=== PATIENT | male | born 1955 | race Caucasian/White ===

== ENCOUNTER → 2020-04-24 | Outpatient (CLI) | payer BC ==
[~2020-04-24] MED LIST: NAPR550 PO; OXYACE5T PO
[2020-04-24 15:35] LABS: BASOPHILS PERCENT AUTO 2 % (0-2); EOSINOPHILS ABSOLUTE AUTO 0.17 K/mm3 (0.00-0.68); EOSINOPHILS PERCENT AUTO 3 % (0-6); IMMATURE GRAN ABSOLUTE AUTO 0.02 K/mm3 (0.00-0.10); IMMATURE GRAN PERCENT AUTO 0 % (0-1); LYMPHOCYTES ABSOLUTE AUTO 1.64 K/mm3 (0.84-5.20); LYMPHOCYTES PERCENT AUTO 25 % (21-46); MONOCYTES ABSOLUTE AUTO 0.56 K/mm3 (0.16-1.47); MONOCYTES PERCENT AUTO 9 % (4-13); Mean Corpuscular HGB 29.1 pg (26.0-34.0); Mean Corpuscular HGB Conc 32.7 g/dL (31.5-36.5); Mean Corpuscular Volume 89 fL (80-100); Mean Platelet Volume 8.8 fL (9.1-12.4); NEUTROPHILS ABSOLUTE AUTO 4.11 K/mm3 (1.96-9.15); NEUTROPHILS PERCENT AUTO 62 % (41-73); Platelet Count 249 K/mm3 (150-400); RDW Coefficient Variation 12.6 % (11.7-14.2); RDW Standard Deviation 41.1 fL (35.1-46.3); Red Blood Cell Count 5.84 M/mm3 (4.30-5.90)
[2020-04-24 16:25] LABS: Alanine Aminotransfer (ALT/SGP 20 U/L (12-78); Albumin/Globulin Ratio 1.1 (0.8-1.8); Alk Phos 104 U/L (50-136); Anion Gap 8 mmol/L (6-16); Aspartate Aminotrans (AST/SGOT 14 U/L (12-37); Bilirubin, Total 1.1 mg/dL (0.1-1.0); Blood Urea Nitrogen 13 mg/dL (8-24); Bun/Creatinine Ratio 13.8 (12.0-20.0); CHOL/HDL RATIO 6.1; CO2, Blood 27 mmol/L (21-32); Calcium, Blood 8.9 mg/dL (8.5-10.1); Chloride, Blood 106 mmol/L (98-108); Cholesterol 238 mg/dL (50-200); Creatinine, Blood 0.94 mg/dL (0.60-1.20); Globulin, Blood 3.5 g/dL (2.2-4.0); Glomerular Filtration Rate >60 (60-); Glucose, Blood 111 mg/dL (70-99); HDL Cholesterol 39 mg/dL (>39); LDL/HDL RATIO 4.6; Low Density Lipoprotein Chol 180 mg/dL (0-110); Potassium, Blood 3.8 mmol/L (3.5-5.5); Sodium, Blood 141 mmol/L (136-145); Total Protein, Blood 7.5 g/dL (6.4-8.2); Triglycerides 94 mg/dL (30-160); Very Low Density Lipoprot Chol 18 mg/dL (6-32)
== END | disposition home or self-care (01) ==
LOC: LAB SHORT 14:33 → LAB 14:33
PROVIDERS: Hospitalist
DX: Z00.00 Encounter for general adult medical examination without abnormal findings (principal); Z12.5 Encounter for screening for malignant neoplasm of prostate; I10 Essential (primary) hypertension
CPT/HCPCS: 80053; 80061; 85025; G0103

== ENCOUNTER 2024-10-19 09:11 | Day surgery (SDC) | payer OTHER ==
[2024-10-19] VITALS (15 sets, daily range): BP systolic 97–143; BP diastolic 57–93
[~2024-10-19 09:11] MED LIST changes: +AMLO5 PO; +IBUP600 PO; +LOSARTAN-HCTZ1 EACH PO
[2024-10-19] MEDS ORDERED: Ropivacaine 0.5% HCl/Pf 123.125 MG,EPINEPHrine HCL 0.25 MG,Ketorolac Tromethamine 15 MG... INFIL SCH ×2 (10:05→12:25)
[2024-10-19] MEDS ORDERED: OxyCODONE HCL 10 MG TABCR PO SCH (10:05)
[2024-10-19] MEDS ORDERED: Chlorhexidine Mouth Care 15 ML UDC MT SCH (10:05)
[2024-10-19] MEDS ORDERED: Lactated Ringer's 1,000 ML IV SCH ×2 (10:05→11:45)
[2024-10-19] MEDS ORDERED: Acetaminophen 500 MG Tab PO SCH ×2 (10:05→16:00)
[2024-10-19] MEDS ORDERED: CeFAZolin Sodium 2,000 MG in NS 100 ML IV SCH ×2 (10:10→20:30)
[2024-10-19] MEDS ORDERED: Tranexamic Acid 100 ML IV SCH (10:12)
--- NOTE | 2024-10-19 11:19 | NUR ---
TO SDS VIA WC DIFFICULTY AMBULATING DUE TO BILAT HIP PAIN. VOIDED WITHOUT DIFF. PRE OP TEACHING DONE
[2024-10-19] MEDS ORDERED: Prochlorperazine Edisylate 10 mg Vial IV PRN (11:40)
[2024-10-19] MEDS ORDERED: OxyCODONE HCL 5 MG TAB PO PRN ×2 (11:45)
[2024-10-19] MEDS ORDERED: Metoclopramide HCl 5MG / ML 2ML Vial IV PRN (11:45)
[2024-10-19] MEDS ORDERED: Magnesium Hydroxide Conc 10 ML UDC PO PRN (11:45)
[2024-10-19] MEDS ORDERED: Ondansetron HCl 2 MG / ML 2ML Vial IV PRN (11:45)
[2024-10-19] MEDS ORDERED: FLU VACC TS2024-25(6MOS UP)/PF 45 MCG/0.5 ML SYRINGE IM SCH (11:45)
[2024-10-19] MEDS ORDERED: DiphenhydrAMINE HCL 25 MG Cap PO PRN (11:50)
[2024-10-19] MEDS ORDERED: HYDROmorphone HCl/Pf 1MG SYR IV PRN (11:50)
[2024-10-19] MEDS ORDERED: Promethazine HCl 25 MG Tab PO PRN (11:50)
[2024-10-19] MEDS ORDERED: Bisacodyl 10 MG Supp PR PRN (11:55)
[2024-10-19] MEDS ORDERED: Ketorolac Tromethamine 15mg Vial IV SCH (12:00)
--- NOTE | 2024-10-19 12:26 | NUR ---
PT GLASSES TAKEN TO PACU FOR SAFEKEEPING.
[2024-10-19] MEDS ORDERED: propofoL 20 ML IV ONE ×5 (13:19→13:59)
[2024-10-19] MEDS ORDERED: FentaNYL Citrate 50 MCG/ML 2 ML Injection ONE (13:19)
--- NOTE | 2024-10-19 13:21 | NUR ---
10/19/24 1321 Arminda Pozo SPINAL BLOCK COMPLETED BY UPON ENTRY TO OR. PATIENT TOLERATED WELL.
[2024-10-19] MEDS ORDERED: propofoL 50 ML IV ONE (14:14)
--- NOTE | 2024-10-19 17:16 | NUR ---
SHIFT SUMMARY PT ARRIVED TO UNIT FROM PACU S/P BILATERAL TOTAL HIP. ABLE TO WIGGLE TOES. REPORTS SENSATION. AND STATES NO PAIN BUT DISCOMFORT IN THIGHS. ALERT AND ORIENTED VISITING WITH FRIENDS AT THIS TIME. TOLERATING WATER AND CRACKERS. NO NAUSEA. ON ROOM AIR. AQUACELS REMAIN CDI. BILATERAL POLAR PAKS IN PLACE. EDUCATED PT ON CALLING ONCE HE BEGINS TO FEEL PAIN. CALL LIGHT PROVIDED.
[2024-10-19] MEDS ORDERED: Docusate Sodium 100 MG Cap PO SCH (21:00)
--- NOTE | 2024-10-20 04:34 | NUR ---
SHIFT SUMMARY NOC. PT POD 1 FOR BILATERAL TOTAL HIPS. A/O X4. AQUACELS ON BOTH HIPS ARE C/D/I WITHOUT SHADOWING AND POLAR PACKS IN PLACE. PT VOIDING AND TOLERATING PO. PT MEDICATED FOR PAIN WITH REPORTED RELIEF OF SX. PT ABLE TO STAND WITH GB, AND FWW. S.O AT BEDSIDE T/O THE NIGHT. MAKES NEEDS KNOWN, CALL LIGHT IN REACH.
[2024-10-20 04:52] VITALS: BP 95/53
[2024-10-20 05:15] LABS: BASOPHILS ABSOLUTE AUTO 0.05 K/mm3 (0.00-0.23); BASOPHILS PERCENT AUTO 1 % (0-2); EOSINOPHILS ABSOLUTE AUTO 0.13 K/mm3 (0.00-0.68); EOSINOPHILS PERCENT AUTO 2 % (0-6); Hemoglobin 11.9 g/dL (13.5-17.5); IMMATURE GRAN ABSOLUTE AUTO 0.03 K/mm3 (0.00-0.10); IMMATURE GRAN PERCENT AUTO 0 % (0-1); LYMPHOCYTES ABSOLUTE AUTO 1.29 K/mm3 (0.84-5.20); LYMPHOCYTES PERCENT AUTO 15 % (21-46); MONOCYTES ABSOLUTE AUTO 0.96 K/mm3 (0.16-1.47); MONOCYTES PERCENT AUTO 11 % (4-13); Mean Corpuscular HGB 30.7 pg (26.0-34.0); Mean Corpuscular Volume 90 fL (80-100); Mean Platelet Volume 8.7 fL (9.1-12.4); NEUTROPHILS PERCENT AUTO 72 % (41-73); Platelet Count 163 K/mm3 (150-400); RDW Coefficient Variation 12.7 % (11.7-14.2); RDW Standard Deviation 41.7 fL (35.1-46.3); Red Blood Cell Count 3.88 M/mm3 (4.30-5.90); White Blood Cell Count 8.86 K/mm3 (4.00-11.30)
[2024-10-20 05:34] LABS: Calcium, Blood 8.3 mg/dL (8.5-10.1); Creatinine, Blood 1.26 mg/dL (0.60-1.20); Potassium, Blood 4.2 mmol/L (3.5-5.5)
[2024-10-20 08:06] VITALS: BP 108/56
[2024-10-20] MEDS ORDERED: ASPI81CH PO (08:19)
[2024-10-20] MEDS ORDERED: Losartan/HCTZ 50-12.5 TAB PO SCH (09:00)
[2024-10-20] MEDS ORDERED: AmLODIPine Besylate 5 MG Tab PO SCH (09:00)
[2024-10-20] MEDS ORDERED: Aspirin 81 MG Chew PO SCH (09:00)
--- NOTE | 2024-10-20 11:28 | NUR ---
Pt. is awake in bed and welcomes my visit. Pt. is pleasant and a life review was intitiated. As Pt. is telling life story, his spouse arrived. 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 Considered matters of aman and belief. Pt. displayed a confident hope. Prayed with Pt. pt. and spouse verbalize gratitude for the spiritual care visit.
--- NOTE | 2024-10-20 11:51 | NUR ---
DISCHARGE: PT CLEARED BY THERAPY, AMBULATING AND PAIN MANAGED. VOIDING AND SURGICAL SITES WNL. DC PACKET PRINTED AND PT EDUCATED. IV DC'D WNL BY THIS RN TIP INTACT. PT LEFT UNIT VIA WHEELCHAIR AT THIS TIME WITH OLIVA SALAS.
== END 2024-10-20 11:51 | disposition home or self-care (01) ==
LOC: ORSCMMR 09:11 → ORD 11:00 → ORSCMMR 11:00 → ORD 12:00 → SURS 16:51 → ORSCMMR 10-20 11:51
PROVIDERS: Orthopaedic Surgery
PROC: 0SRB0JZ Replacement of Left Hip Joint with Synthetic Substitute, Open Approach (ICD-10-PCS; principal; 2024-10-19 11:00)
PROC: 0SR90JZ Replacement of Right Hip Joint with Synthetic Substitute, Open Approach (ICD-10-PCS; principal; 2024-10-19 11:00)
DX: M16.0 Bilateral primary osteoarthritis of hip (principal); M25.752 Osteophyte, left hip; M25.751 Osteophyte, right hip; M21.852 Other specified acquired deformities of left thigh; M21.851 Other specified acquired deformities of right thigh; I10 Essential (primary) hypertension; Z79.899 Other long term (current) drug therapy
CPT/HCPCS: 36415; 72170; 80048; 85025; 97110; 97116; 97162; A9270; C1776; J0171; J0690; J0735; J1885; J2704; J2795; J3010; J7120

== ENCOUNTER 2025-09-07 08:14 | Day surgery (SDC) | payer OTHER ==
[~2025-09-07] VITALS: Ht 177.8 cm; Wt 94.2 kg
[~2025-09-07 08:14] MED LIST changes: +ASPI81CH PO
[2025-09-07] MEDS ORDERED: ePHEDrine Sulfate 50 MG/ML 1ML Injection ONE (09:41)
[2025-09-07 10:37] VITALS: BP 120/73
== END 2025-09-07 10:38 | disposition home or self-care (01) ==
LOC: ORSCSDS 08:14
PROVIDERS: Internal Medicine Gastroenterology
PROC: 0DBN8ZX Excision of Sigmoid Colon, Via Natural or Artificial Opening Endoscopic, Diagnostic (ICD-10-PCS; principal; 2025-09-07 10:00)
PROC: 0DBL8ZX Excision of Transverse Colon, Via Natural or Artificial Opening Endoscopic, Diagnostic (ICD-10-PCS; principal; 2025-09-07 10:00)
PROC: 0DBH8ZX Excision of Cecum, Via Natural or Artificial Opening Endoscopic, Diagnostic (ICD-10-PCS; principal; 2025-09-07 10:00)
DX: Z12.11 Encounter for screening for malignant neoplasm of colon (principal); R19.5 Other fecal abnormalities; D12.0 Benign neoplasm of cecum; D12.3 Benign neoplasm of transverse colon; D12.5 Benign neoplasm of sigmoid colon; K57.30 Diverticulosis of large intestine without perforation or abscess without bleeding; K64.8 Other hemorrhoids; I10 Essential (primary) hypertension; Z79.899 Other long term (current) drug therapy
CPT/HCPCS: 88305; J2704; J7120